=== PATIENT | male | born 1975 | race Caucasian/White ===

== ENCOUNTER 2020-09-12 15:23 | Emergency (ER) | payer OTHER ==
[2020-09-12 16:32] LABS: HEMOGLOBIN 16.8 gm/dl (14.0-17.5); RED BLOOD COUNT 6.05 M/UL (4.20-5.50); WHITE BLOOD COUNT 11.3 K/UL (4.5-11.0)
[2020-09-12 16:49] LABS: BUN/CREATININE RATIO 13 (0-10)
[2020-09-12] MEDS ORDERED: ZOFRAN4 MG PO (18:46)
[2020-09-12] MEDS ORDERED: TORADOL 10 MG T10 MG PO (18:46)
[2020-09-12] MEDS ORDERED: FLOMAX 0.4 MG0.4 MG PO (18:46)
== END 2020-09-12 18:55 | disposition home or self-care (01) ==
LOC: ER1 15:23
PROVIDERS: Physician Assistant
DX: N13.2 Hydronephrosis with renal and ureteral calculous obstruction (principal)
CPT/HCPCS: 80053; 81001; 85025; 99284

== ENCOUNTER 2021-07-12 21:08 | Emergency (ER) | payer OTHER ==
[~2021-07-12 21:08] MED LIST: FLOMAX 0.4 MG0.4 MG PO; TORADOL 10 MG T10 MG PO; ZOFRAN4 MG PO
[2021-07-12] MEDS ORDERED: NAPROXEN500 MG PO (21:50)
== END 2021-07-12 21:55 | disposition home or self-care (01) ==
LOC: ER1 21:08
DX: S93.402A Sprain of unspecified ligament of left ankle, initial encounter (principal); I10 Essential (primary) hypertension; X50.9XXA Other and unspecified overexertion or strenuous movements or postures, initial encounter
CPT/HCPCS: 73610; 99283